=== PATIENT | male | born 1970 | race American Indian/Alaskan Native ===

== ENCOUNTER 2022-05-21 01:19 | Observation (INO) ==
[2022-05-21] MEDS ORDERED: GLUCAGON 1 MG VIAL IM PRN (04:04)
[2022-05-21] MEDS ORDERED: ONDANSETRON 4 MG/2 ML VIAL IV PRN (04:04)
[2022-05-21] MEDS ORDERED: DEXTROSE 10% 250 ML BAG IV PRN (04:51)
[2022-05-21] MEDS ORDERED: DIAZEPAM 10 MG/2 ML SYRINGE IV PRN (04:53)
[2022-05-21 07:28] LABS: Basophils % 0.3 % (0.0-0.8); Eosinophils # 0.1 10*3/uL (0.0-0.87); Eosinophils % 3.7 % (0.00-10.9); Hematocrit 41.9 VOL% (42.0-52.0); Hemoglobin 13.8 GM/DL (14.0-18.0); Immature Granulocytes % 0.3 %; Immature Granulocytes Absolute 0.01 #; Lymphocytes # 1.2 10*3/uL (1.4-4.0); Lymphocytes % 36.6 % (21.2-54.2); Mean Corpuscular HGB Conc 32.9 GM/DL (32-36); Mean Corpuscular Volume 101.7 FL (87-102); Mean Platelet Volume 11.1 FL (9.6-12.0); Monocytes # 0.3 10*3/uL (0.11-0.8); Monocytes % 9.5 % (1.7-12.7); Neutrophils % 49.6 % (38.7-73.9); Platelet Count 51 T/CUMM (130-400); Red Blood Count 4.12 MC/CUMM (3.8-5.5); White Blood Count 3.28 T/CUMM (4-12)
[2022-05-21] MEDS: LACTULOSE 20 GM/30 ML UDCUP PO SCH ×4 (07:42→23:23)
[2022-05-21 07:47] LABS: Albumin 3.1 G/DL (3.4-5.0); Bilirubin,Total 1.1 MG/DL (0.20-1.00); Calcium 8.5 MG/DL (8.5-10.1); Osmolality,Calculated 288.8 MOS/KG (273-304); Potassium 4.1 MMOL/L (3.5-5.1); Total Protein 8.2 G/DL (6.4-8.2)
[2022-05-21] MEDS: INSULIN REGULAR 100 UNIT/ML SUBCUT SCH ×4 (07:54→20:50)
[2022-05-21] MEDS ORDERED: PNEUMOCOCCAL VACCINE (20 VALENT) 0.5 ML SYRINGE IM ONE (09:00)
[2022-05-21] MEDS ORDERED: PANTOPRAZOLE 40 MG TABLET PO SCH (09:00)
[2022-05-21] MEDS: THIAMINE 100 MG TABLET PO SCH (09:14)
[2022-05-21] MEDS: FOLIC ACID 1 MG TABLET PO SCH (09:14)
[2022-05-21 09:17] LABS: Hypochromia Slight
[2022-05-21 09:18] LABS: Platelet Estimate Decreased
[2022-05-21] MEDS: RIFAXIMIN 550 MG TABLET PO SCH (20:51)
[2022-05-22] MEDS: LACTULOSE 20 GM/30 ML UDCUP PO SCH ×5 (05:45→21:07)
[2022-05-22 06:08] LABS: Eosinophils # 0.1 10*3/uL (0.0-0.87); Eosinophils % 2.4 % (0.00-10.9); Hematocrit 37.8 VOL% (42.0-52.0); Hemoglobin 12.7 GM/DL (14.0-18.0); Immature Granulocytes % 0.4 %; Immature Granulocytes Absolute 0.01 #; Lymphocytes # 0.7 10*3/uL (1.4-4.0); Mean Corpuscular HGB Conc 33.6 GM/DL (32-36); Mean Corpuscular Volume 101.3 FL (87-102); Mean Platelet Volume 11.5 FL (9.6-12.0); Monocytes # 0.4 10*3/uL (0.11-0.8); Monocytes % 16.9 % (1.7-12.7); Neutrophils % 54.3 % (38.7-73.9); Red Blood Count 3.73 MC/CUMM (3.8-5.5); Red Cell Distribution Width 14.6 % (9.3-17.3); White Blood Count 2.54 T/CUMM (4-12)
[2022-05-22 06:10] LABS: Albumin 2.7 G/DL (3.4-5.0); Bilirubin,Total 1.7 MG/DL (0.20-1.00); Calcium 8.1 MG/DL (8.5-10.1); Osmolality,Calculated 281.3 MOS/KG (273-304); Potassium 4.1 MMOL/L (3.5-5.1); Total Protein 7.1 G/DL (6.4-8.2)
[2022-05-22 06:22] LABS: Platelet Count 33 T/CUMM (130-400)
[2022-05-22 06:42] LABS: Eosinophils 2 % (0-10); Lymphocytes 20 % (20-55); Platelet Estimate Decreased; Total Cells Counted 100
[2022-05-22] MEDS: INSULIN REGULAR 100 UNIT/ML SUBCUT SCH ×4 (08:01→20:43)
[2022-05-22] MEDS: FOLIC ACID 1 MG TABLET PO SCH (10:30)
[2022-05-22] MEDS: THIAMINE 100 MG TABLET PO SCH (10:30)
[2022-05-22] MEDS: MULTIVITAMIN (BEROCCA) TABLET PO SCH (10:30)
[2022-05-22] MEDS: RIFAXIMIN 550 MG TABLET PO SCH ×2 (10:30→20:13)
[2022-05-23] MEDS: LACTULOSE 20 GM/30 ML UDCUP PO SCH ×3 (01:14→09:28)
[2022-05-23 06:31] LABS: Eosinophils # 0.1 10*3/uL (0.0-0.87); Eosinophils % 3.2 % (0.00-10.9); Hematocrit 37.3 VOL% (42.0-52.0); Hemoglobin 12.6 GM/DL (14.0-18.0); Lymphocytes # 0.8 10*3/uL (1.4-4.0); Lymphocytes % 34.7 % (21.2-54.2); Mean Corpuscular HGB Conc 33.8 GM/DL (32-36); Mean Corpuscular Volume 101.1 FL (87-102); Monocytes # 0.3 10*3/uL (0.11-0.8); Monocytes % 14.2 % (1.7-12.7); Neutrophils % 47.9 % (38.7-73.9); Red Blood Count 3.69 MC/CUMM (3.8-5.5); Red Cell Distribution Width 14.4 % (9.3-17.3); White Blood Count 2.19 T/CUMM (4-12)
[2022-05-23 06:36] LABS: Platelet Count 33 T/CUMM (130-400)
[2022-05-23 06:38] LABS: Albumin 2.8 G/DL (3.4-5.0); Bilirubin,Total 1.7 MG/DL (0.20-1.00); Calcium 8.5 MG/DL (8.5-10.1); Osmolality,Calculated 280.3 MOS/KG (273-304); Potassium 4.2 MMOL/L (3.5-5.1); Total Protein 7.1 G/DL (6.4-8.2)
[2022-05-23 06:52] LABS: Anisocytosis 1+; Platelet Estimate Decreased
[2022-05-23 06:53] LABS: Macrocytosis Slight
[2022-05-23] MEDS: INSULIN REGULAR 100 UNIT/ML SUBCUT SCH (08:07)
[2022-05-23 08:39] VITALS: BP 142/91
[2022-05-23] MEDS: RIFAXIMIN 550 MG TABLET PO SCH (08:52)
[2022-05-23] MEDS: MULTIVITAMIN (BEROCCA) TABLET PO SCH (08:52)
[2022-05-23] MEDS: FOLIC ACID 1 MG TABLET PO SCH (08:52)
[2022-05-23] MEDS: THIAMINE 100 MG TABLET PO SCH (08:52)
== END 2022-05-23 10:51 | disposition home or self-care (01) ==
LOC: N.2E → SUATTDRO 03:54
PROVIDERS: ADMIT Internal Medicine; ATTEND Hospitalist